=== PATIENT | male | born 1970 | race Caucasian/White ===

== ENCOUNTER 2020-08-02 06:28 | Outpatient (CLI) | payer OTHER, SELFPAY ==
--- NOTE | 2020-08-02 06:35 | USCV_ITS ---
Sriram Hoang Age: 50 Gender: M : 1970 Exam Date: 08/02/2020 06:43 Ordering Phys: Emil Jones MD Technologist: Coco Roberson Exam Location: [facility] [place] Indication: ATHEROSCLEROSIS BP: 103 / 56 HR: 61 Rhythm: Sinus Technical Quality: Adequate MEASUREMENTS (Male / Female) Normal Values 2D ECHO LV Diastolic Diameter PLAX 3.5 cm 4.2 - 5.9 / 3.9 - 5.3 cm LV Systolic Diameter PLAX 2.6 cm IVS Diastolic Thickness 1.2 cm 0.6 - 1.0 / 0.6 - 0.9 cm IVS Systolic Thickness 1.2 cm LVPW Diastolic Thickness 1.6 cm 0.6 - 1.0 / 0.6 - 0.9 cm LVPW Systolic Thickness 2.0 cm LVOT Diameter 2.0 cm LV Ejection Fraction 2D Teich 53.3 % LV Ejection Fraction MOD 2C 66.9 % LV Ejection Fraction 2C AL 67.3 % LA Diameter 3.1 cm LA Width 3.9 cm LA Height 4.6 cm RA Width 2.9 cm RA Height 4.2 cm Aorta at Sinotubular Diameter 2.9 cm M-MODE LV Diastolic Diameter MM 4.5 cm 4.2 - 5.9 / 3.9 - 5.3 cm LV Systolic Diameter MM 3.0 cm LV Ejection Fraction MM Teich 62.3 % IVS Diastolic Thickness MM 0.8 cm 0.6 - 1.0 / 0.6 - 0.9 cm IVS Systolic Thickness MM 1.1 cm LVPW Diastolic Thickness MM 0.7 cm 0.6 - 1.0 / 0.6 - 0.9 cm LVPW Systolic Thickness MM 0.9 cm Aortic Annulus Diameter 3.0 cm LA Ao Ratio MM 1.2 MV E Point Septal Separation 0.7 cm DOPPLER AV Peak Velocity 139.0 cm/s LVOT Peak Velocity 109.0 cm/s AV Area Cont Eq vti 2.8 cm squared AV Area Cont Eq pk 2.5 cm squared MV Area PHT 3.0 cm squared Mitral E to A Ratio 1.3 MV E' Velocity 43.0 cm/s Mitral E to MV E' Ratio 5.4 Mitral E to LV E' Lateral Ratio 4.3 Mitral E to LV E' Septal Ratio 7.4 TR Peak Velocity 203.8 cm/s TR Peak Gradient 16.6 mmHg TV Peak E Velocity 59.0 cm/s Right Atrial Pressure 3.0 mmHg Pulmonary Artery Systolic Pressu 19.6 mmHg PV Peak Velocity 97.0 cm/s RV Acceleration Time 0.2 s RV Ejection Time 0.4 s RV AcT/ET 0.4 FINDINGS Left Ventricle Normal left ventricular size and systolic function, EF55%. No regional wall motion abnormalities. Right Ventricle The right ventricle is normal in size and function. Right Atrium The right atrium is normal in size. Left Atrium The left atrium is normal in size. Mitral Valve No gross abnormalities noted Aortic Valve No gross abnormalities noted Tricuspid Valve No gross abnormalities noted Pulmonic Valve Pulmonic valve not well visualized. Pericardium Normal pericardium without effusion. Aorta Normal ascending aorta dimension. CONCLUSIONS Normal left ventricular size and systolic function, EF 55%. No regional wall motion abnormalities. No significant stenotic or regurgitant lesions. Normal cardiac chamber sizes. There is no pericardial effusion. There are no intracardiac masses. No previous study is available for comparison. Dr Clarisa Bright MD FACC (Electronically Signed) Final Date: 02 August 2020 19:27 S
== END 2020-08-02 06:29 | disposition home or self-care (01) ==
LOC: US 06:30
PROVIDERS: PCP Internal Medicine; Visit Provider Orthopaedic Surgery
DX: I70.90 Unspecified atherosclerosis (principal)
CPT/HCPCS: 93306